=== PATIENT | male | born 1975 | race Caucasian/White ===

== ENCOUNTER 2018-09-19 20:30 | Outpatient (CLI) | payer BC | END 2018-09-19 20:31 | disposition home or self-care (01) | LOC: SLEEPLAB 20:30 | PROVIDERS: ATTEND Family Medicine | DX: G47.33 Obstructive sleep apnea (adult) (pediatric) (principal); R06.83 Snoring; R53.83 Other fatigue; I10 Essential (primary) hypertension; G47.61 Periodic limb movement disorder | CPT/HCPCS: 95810 ==

== ENCOUNTER 2019-01-29 14:54 | Outpatient (CLI) | payer BC ==
--- NOTE | 2019-01-29 17:16 | MRI ---
MRI CERVICAL SPINE: History: Neck pain. Technique: Multiplanar, multisequence noncontrast enhanced MRI images were obtained of the cervical s pine. FINDINGS: The spinal cord is unremarkable with no evidence of cord masses or lesions. C1-2: Unremarkable. C2-3: Unremarkable. C3-4: Unremarkable. C4-5: There is moderate to severe left and moderate right sided neural foraminal narrowing due to unc al vertebral osteophyte hypertrophy. The central canal is patent. C5-6: Disc desiccation is seen. There is a broad based central disc osteophyte complex compressing th e thecal sac resulting in mild to moderate right C5-6 paracentral thecal sac compression. Minimal but not significant degree of cord compression is seen. Mild right sided neural foraminal narrowing is s een. The left neural foramen is patent. C6-7: There is disc desiccation seen. There is a broad based disc osteophyte complex seen centrally c ompressing the thecal sac resulting in a moderate degree of central stenosis. There is moderate bilat eral neural foraminal narrowing due to uncal vertebral osteophyte hypertrophy. C7-T1: Unremarkable. 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 There is also bilateral neural foraminal narrowing at C4-5. POS: C
== END 2019-01-29 14:55 | disposition home or self-care (01) ==
LOC: SCSMRI 14:54
PROVIDERS: ATTEND Family Medicine
DX: M54.2 Cervicalgia (principal); M48.02 Spinal stenosis, cervical region; M25.78 Osteophyte, vertebrae
CPT/HCPCS: 72141